=== PATIENT | female | born 1995 | race African-American/Black ===

== ENCOUNTER 2018-01-22 06:30 | Emergency (ER) | payer BC ==
[~2018-01-22] VITALS: Ht 162.6 cm; Wt 67.8 kg
[2018-01-22 07:12] LABS: HEMATOCRIT 36.9 % (36.0-46.0); HEMOGLOBIN 12.5 G/DL (11.9-15.5); MCH 31.7 PG (29.0-34.0); MCHC 33.9 G/DL (30.0-36.0); MCV 93.7 FL (83-99); RBC DIS.WIDTH-CV 12.5 % (11.8-14.6); RBC DIS.WIDTH-SD 43.4 % (39-53); RED BLOOD COUNT 3.94 M/uL (3.80-5.20); WHITE BLOOD COUNT 10.9 K/uL (4.1-10.2)
[2018-01-22 07:49] LABS: CHLORIDE 105 MEQ/L (99-109); CREATININE 0.8 MG/DL (0.6-1.3); GFR ESTIMATE (CALCULATED) > 59 mL/min/; GLUCOSE 81 mg/dL (70-99); POTASSIUM 3.7 MEQ/L (3.7-5.4); SODIUM 139 MEQ/L (136-147); UREA NITROGEN (BUN) 8 mg/dL (9-23)
[2018-01-22 07:57] LABS: PLAT.SUFFICIENCY ADEQUATE; PLATELET COUNT 186 K/uL (156-360)
[2018-01-22 08:01] LABS: MONOSPOT (MONONUCLEOSIS SEROL) NEGATIVE
[2018-01-22] MEDS ORDERED: MOTRIN600 MG PO (08:13)
[2018-01-22 08:35] VITALS: BP 111/73
== END 2018-01-22 08:37 | disposition home or self-care (01) ==
LOC: EME 06:30
PROVIDERS: Nurse Practitioner Family
DX: J02.9 Acute pharyngitis, unspecified (principal)
CPT/HCPCS: 80048; 85027; 86308; 87651 90; 99281; 99284